=== PATIENT | male | born 1960 | race African-American/Black ===

== ENCOUNTER 2020-08-08 07:37 | Outpatient (REF) | payer MEDICAID, SELFPAY ==
--- NOTE | ~2020-08-08 | XR_ITS ---
EXAMINATION: BILATERAL KNEE X-RAY CLINICAL INFORMATION: Pain COMPARISON: Previous x-rays May 2016 TECHNIQUE: AP standing view and lateral and sunrise views of both knees FINDINGS: Right: There is mild varus angulation at the knee joint. Bone alignment is otherwise normal. No fracture or dislocation is seen. There is arthritis at the medial femoral tibial and patellofemoral joints with joint space narrowing and osteophyte formation. There is no significant joint effusion. Left: Bone alignment is normal. No fracture or dislocation is seen. There is severe arthritis at the femoral tibial joints. There is arthritis at the patellofemoral joint. There is no significant joint effusion. XR/XR knee standing BI IMPRESSION: Bilateral arthritis, left greater than right.
--- NOTE | ~2020-08-08 | XR_ITS ---
EXAMINATION: BILATERAL KNEE X-RAY CLINICAL INFORMATION: Pain COMPARISON: Previous x-rays May 2016 TECHNIQUE: AP standing view and lateral and sunrise views of both knees FINDINGS: Right: There is mild varus angulation at the knee joint. Bone alignment is otherwise normal. No fracture or dislocation is seen. There is arthritis at the medial femoral tibial and patellofemoral joints with joint space narrowing and osteophyte formation. There is no significant joint effusion. Left: Bone alignment is normal. No fracture or dislocation is seen. There is severe arthritis at the femoral tibial joints. There is arthritis at the patellofemoral joint. There is no significant joint effusion. XR/XR knee RT 2V IMPRESSION: Bilateral arthritis, left greater than right.
--- NOTE | ~2020-08-08 | XR_ITS ---
EXAMINATION: BILATERAL KNEE X-RAY CLINICAL INFORMATION: Pain COMPARISON: Previous x-rays May 2016 TECHNIQUE: AP standing view and lateral and sunrise views of both knees FINDINGS: Right: There is mild varus angulation at the knee joint. Bone alignment is otherwise normal. No fracture or dislocation is seen. There is arthritis at the medial femoral tibial and patellofemoral joints with joint space narrowing and osteophyte formation. There is no significant joint effusion. Left: Bone alignment is normal. No fracture or dislocation is seen. There is severe arthritis at the femoral tibial joints. There is arthritis at the patellofemoral joint. There is no significant joint effusion. XR/XR knee LT 2V IMPRESSION: Bilateral arthritis, left greater than right.
== END 2020-08-08 07:38 | disposition home or self-care (01) ==
LOC: HO.HOSX 07:37
PROVIDERS: Visit Provider Physician Assistant
DX: M17.0 Bilateral primary osteoarthritis of knee (principal); E66.01 Morbid (severe) obesity due to excess calories; Z68.42 Body mass index [BMI] 45.0-49.9, adult
CPT/HCPCS: 20610; 73560; 73565; 99202; J1040

== ENCOUNTER 2020-08-13 15:06 | Outpatient (REF) | payer MEDICAID, SELFPAY | END 2020-08-13 15:07 | disposition home or self-care (01) | LOC: HO.LAB 15:06 | PROVIDERS: Visit Provider Internal Medicine | DX: Z20.822 Contact with and (suspected) exposure to COVID-19 (principal) | CPT/HCPCS: C9803; U0003; U0005 ==

== ENCOUNTER → 2021-02-04 08:36 | Outpatient (BNVA) | payer MEDICAID, SELFPAY | PROVIDERS: Visit Provider Physician Assistant | DX: M17.0 Bilateral primary osteoarthritis of knee (principal) | CPT/HCPCS: 20610; 99212; J1040 ==

== ENCOUNTER → 2021-04-27 09:06 | Outpatient (BNVA) | payer MEDICAID, SELFPAY | PROVIDERS: PCP Internal Medicine; Visit Provider Orthopaedic Surgery | DX: M17.0 Bilateral primary osteoarthritis of knee (principal); E66.01 Morbid (severe) obesity due to excess calories; Z68.42 Body mass index [BMI] 45.0-49.9, adult | CPT/HCPCS: 20610; 99212 ==

== ENCOUNTER 2021-04-27 09:55 | Outpatient (REF) | payer MEDICAID, SELFPAY ==
[2021-04-27 10:59] LABS: COVID-19 Test Positive (Negative)
== END 2021-04-27 09:56 | disposition home or self-care (01) ==
LOC: HO.LAB 09:55
PROVIDERS: Visit Provider Internal Medicine
DX: Z20.822 Contact with and (suspected) exposure to COVID-19 (principal)
CPT/HCPCS: 87635; C9803; J1100

== ENCOUNTER → 2021-10-05 10:34 | Outpatient (BNVA) | payer MEDICAID, SELFPAY | PROVIDERS: PCP Internal Medicine; Visit Provider Orthopaedic Surgery | DX: M17.0 Bilateral primary osteoarthritis of knee (principal); E66.01 Morbid (severe) obesity due to excess calories; Z68.41 Body mass index [BMI] 40.0-44.9, adult | CPT/HCPCS: 20610; 99212; J1100 ==

== ENCOUNTER → 2022-01-04 08:11 | Outpatient (BNVA) | payer MEDICAID, SELFPAY | PROVIDERS: PCP Internal Medicine; Visit Provider Orthopaedic Surgery | DX: M17.0 Bilateral primary osteoarthritis of knee (principal); E66.01 Morbid (severe) obesity due to excess calories; Z68.41 Body mass index [BMI] 40.0-44.9, adult | CPT/HCPCS: 20610; 99212; J1100 ==

== ENCOUNTER 2023-02-21 14:14 | Outpatient (AMB) | payer OTHER, SELFPAY ==
--- NOTE | 2023-02-21 14:24 | A.OFFVIS_ITS ---
Intake Intake Visit Reasons: Bilateral Knee Injections -last 01/04/22 Intake Note: Angelito is a 63 year old male who presents today for bilateral knee injections. Last injections done bilaterally on 01/04/23 he reports good relief Allergies No Known Allergies [No Known Allergies*] Allergy (Verified 10/05/21 10:46) HPI Bilateral Knee Injections -last 01/04/22 HPI Details Angelito is a 63 year old man with known bilateral knee OA. He was last seen on 01/04/22 for bilateral knee injections and to discuss knee arthroplasty. He returns today with complaints of bilateral knee pain with activity and would like repeat injections. He continues to work on losing weight in order to consider a TKA. 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 [facility] Social History Current occupation: landscape/ left handed Review of Systems Const All systems reviewed & are unremarkable except as noted in HPI and below Physical Exam Const General: no acute distress and alert Orientation/consciousness: patient oriented x3 HEENT Head: Yes normocephalic and Yes atraumatic Eyes EOM: EOMs intact bilaterally Resp Effort & Inspection: normal respiratory effort and able to speak in complete sentences Cardio Jugular venous distension: no JVD Skin General skin exam: turgor normal Rashes: no rashes Neuro General: patient oriented x3 Extrem Other: Bilateral Knees: TTP medial knee bilaterally Skin C/D/I Psych Appearance: grossly normal Affect: normal affect Attitude: cooperative Office Procedures Joint Injection/Drain Joint Injection/Drain Details: Injected 1 mL of Decadron and 3 mL 1% lidocaine and 3 mL of 0.25% Marcaine. Site was prepped using aseptic technique. Patient tolerated the procedure well. Primary Site: right knee Secondary Site: left knee Approach Used: anterolateral Coding - Large joint - Glenohumeral/Tronchanteric Bursa/Intraarticular Procedure code (CPT) selection complete Results Reviewed Results Reviewed: 02/21/23 14:11 BUPivacaine MPF 0.25 % [Sensorcaine-MPF 0.25% 10 ML] 10 ml .ROUTE .STK-MED ONE Lidocaine HCl 1 % [Xylocaine 1 %] 2 ml .ROUTE .STK-MED ONE Lidocaine HCl 2 % MPF [Xylocaine 2 % MPF] 5 ml .ROUTE .STK-MED ONE dexAMETHasone sod phosphate [Decadron] 4 mg .ROUTE .STK-MED ONE Assessment & Plan Assessment & Plan (1) Degenerative arthritis of knee, bilateral: Code(s): M17.0 - Bilateral primary osteoarthritis of knee Plan: This is a 61 year old man with severe bilateral knee OA. He has pain with daily activity, worse with using stairs or standing. He was last injected on 01/04/22, with good relief. I discussed treatment options. He is a candidate for a right TKA, but his BMI continues to be above the approved clearance level. I injected his bilateral knees today, which he tolerated well, and recommend he continue activity as tolerated. He will follow up prn. (2) Morbid obesity with BMI of 45.0-49.9, adult: Code(s): E66.01 - Morbid (severe) obesity due to excess calories; Z68.42 - Body mass index [BMI] 45.0-49.9, adult Plan: We again discussed weight management, he understands he will need to lose 20- 30lbs before we can proceed with surgery. He will continue to work towards this. Coding Level of Care Code Est Pt Level 3 (64690) Diagnoses Degenerative arthritis of knee, bilateral M17.0 Morbid obesity with BMI of 45.0-49.9, adult E66.01; Z68.42 CPT Codes Coding - 13724 Large joint: 95427 - Large joint ([id number]) Coding - Joint 7: 50716 - Glenohumeral/Tronchanteric Bursa/Intraarticular ([id number])
== END 2023-02-21 14:43 | disposition home or self-care (01) ==
PROVIDERS: PCP Internal Medicine; Visit Provider Orthopaedic Surgery
DX: M17.0 Bilateral primary osteoarthritis of knee (principal); E66.01 Morbid (severe) obesity due to excess calories; Z68.42 Body mass index [BMI] 45.0-49.9, adult
CPT/HCPCS: 20610

== ENCOUNTER → 2023-02-21 14:14 | Outpatient (BNVA) | payer OTHER, SELFPAY | PROVIDERS: PCP Internal Medicine; Visit Provider Orthopaedic Surgery | DX: M17.0 Bilateral primary osteoarthritis of knee (principal); E66.01 Morbid (severe) obesity due to excess calories; Z68.42 Body mass index [BMI] 45.0-49.9, adult | CPT/HCPCS: 20610; J0665; J1100 ==

== ENCOUNTER 2023-08-22 12:07 | Outpatient (AMB) | payer OTHER, SELFPAY ==
--- NOTE | 2023-08-22 12:15 | MHC.OFFVIS ---
Intake Visit Reasons: Bilateral Knee Injections -last 02/21/23 Intake Note: Angelito is a 63 year old male who presents today for a follow up of his bilateral Knee OA. Last Injections administered on 02/21/23, provided about 2 months of relief. He would like to repeat injections today Allergies No Known Allergies [No Known Allergies*] Allergy (Verified 10/05/21 10:46) HPI HPI Bilateral Knee Injections -last 02/21/23: Details: Angelito is a 63 year old male who presents today for a follow up of his bilateral Knee OA. Last Injections administered on 02/21/23, provided about 2 months of relief. He would like to repeat injections today [facility] Social History Current occupation: landscape/ left handed Physical Exam Const General: no acute distress and alert Orientation/consciousness: patient oriented x3 HEENT Head: Yes normocephalic and Yes atraumatic Eyes EOM: EOMs intact bilaterally Resp Effort & Inspection: normal respiratory effort and able to speak in complete sentences Cardio Jugular venous distension: no JVD Skin General skin exam: turgor normal Rashes: no rashes Neuro General: patient oriented x3 Extrem Other: Bilateral Knees: TTP medial knee bilaterally Skin C/D/I Psych Appearance: grossly normal Affect: normal affect Attitude: cooperative Office Procedures Joint Injection/Drain Joint Injection/Drain Details: Injected 1 mL of Decadron and 3 mL 1% lidocaine and 3 mL of 0.25% Marcaine. Site was prepped using aseptic technique. Patient tolerated the procedure well. Primary Site: right knee Secondary Site: left knee Approach Used: anterolateral Coding - Large joint 25308 - Glenohumeral/Tronchanteric Bursa/Intraarticular Procedure code (CPT) selection complete Assessment & Plan Assessment & Plan (1) Degenerative arthritis of knee, bilateral: Code(s): M17.0 - Bilateral primary osteoarthritis of knee Category: Medical Plan: Injection have been helpful. Not currently able to consider surgery due to work. Injected bilateral knees. May follow up in 3 months Coding Level of Care Code Est Pt Level 3 (51552) Diagnoses Degenerative arthritis of knee, bilateral M17.0 CPT Codes Coding - 05548 Large joint: 32331 - Large joint ([id number]) Coding - Joint 7: 73553 - Glenohumeral/Tronchanteric Bursa/Intraarticular ([id number])
== END 2023-08-22 14:02 | disposition home or self-care (01) ==
PROVIDERS: PCP Internal Medicine; Visit Provider Orthopaedic Surgery
DX: M17.0 Bilateral primary osteoarthritis of knee (principal)
CPT/HCPCS: 20610; 99213

== ENCOUNTER → 2023-08-22 12:07 | Outpatient (BNVA) | payer OTHER, SELFPAY | PROVIDERS: PCP Internal Medicine; Visit Provider Orthopaedic Surgery | DX: M17.0 Bilateral primary osteoarthritis of knee (principal) | CPT/HCPCS: 20610; J0665; J1100 ==